=== PATIENT | male | born 1990 | race Hispanic/Latino ===

== ENCOUNTER 2023-05-20 10:27 | Emergency (ER) | payer OTHER ==
[~2023-05-20] VITALS: Ht 167.6 cm; Wt 80.2 kg
[2023-05-20 10:53] LABS: BASOPHILS 0.8 % (0-2); EOSINOPHILS 4.1 % (0-6); HEMATOCRIT 40.9 % (35.0-50.0); LYMPHOCYTES 32.7 % (24-44); MCH 30.3 (27-36); MCHC 34.3 g/dl (30-36); MCV 88.4 fl (81-99); NEUTROPHILS 50.4 % (39-80); PLATELET COUNT 300 K/uL (140-440); RBC 4.63 M/ul (4.3-5.7)
[2023-05-20 11:18] LABS: ALBUMIN 4.1 g/dL (3.4-5.0); ALBUMIN/GLOBULIN RATIO 1.24 (1.1-2.4); ANION GAP 12.4 (7-21); BILIRUBIN, TOTAL 0.4 ng/dL (0.2-1.0); BUN/CREATININE RATIO 13.68 (6.0-28.6); CALCIUM 8.4 mg/dL (8.5-10.1); CREATININE, SERUM 0.95 mg/dL (0.70-1.30); MAGNESIUM 2.1 mg/dL (1.8-2.4); POTASSIUM 3.4 mmol/L (3.5-5.1); PROTEIN, TOTAL 7.4 g/dL (6.4-8.2)
[2023-05-20] MEDS ORDERED: NAPROSYN500 MG PO (12:26)
[2023-05-20 13:11] VITALS: BP 124/90
--- NOTE | 2023-05-20 14:53 | EKG ---
[facility] [address] [facility] [place], [place] [address] Signed Normal sinus rhythm ST elevation, probably due to early repolarization Borderline ECG No previous ECGs available Confirmed by TARUN KEN MD ([id number]) on 05/20/2023 2:53:23 PM Electronically Signed By: TARUN KEN 05/20/23 1453 PATIENT NAME: PARAMJIT VAIL Electrocardiogram DATE OF : 89 PHYSICIAN: TARUN KEN REPORT #: [id number] REPORT IS CONFIDENTIAL AND NOT TO BE RELEASED WITHOUT AUTHORIZATION
== END 2023-05-20 13:10 | disposition home or self-care (01) ==
LOC: ED 10:27
PROVIDERS: Emergency Medicine
DX: R07.89 Other chest pain (principal)
CPT/HCPCS: 36415; 71045; 80053; 83735; 84484; 85025; 93005; 93010; J1885

== ENCOUNTER 2023-07-30 20:11 | Emergency (ER) | payer OTHER ==
[~2023-07-30] VITALS: Ht 167.6 cm; Wt 77.4 kg
[~2023-07-30 20:11] MED LIST: NAPROSYN500 MG PO
[2023-07-30] MEDS ORDERED: ONDANSETRON 4 MG TAB ODT SL ONE (22:00)
[2023-07-30] MEDS ORDERED: TRANEXAMIC ACID 1,000 MG/10 ML AMP TOP ONE (23:00)
[2023-07-30 23:50] LABS: BASOPHILS 0.4 % (0-2); EOSINOPHILS 0.4 % (0-6); HEMATOCRIT 43.2 % (35.0-50.0); HEMOGLOBIN 14.6 g/dL (12.0-18.0); LYMPHOCYTES 9.3 % (24-44); MCH 29.9 (27-36); MCHC 33.7 g/dl (30-36); MCV 88.5 fl (81-99); MONOCYTES 4.3 % (0-12); NEUTROPHILS 85.6 % (39-80); PLATELET COUNT 314 K/uL (140-440); RBC 4.88 M/ul (4.3-5.7); RDW 13.4 (10.5-15.0)
[2023-07-30 23:54] LABS: INR 0.99 (0.80-1.30); PROTIME 12.7 Sec (11.2-14.2)
[2023-07-30 23:56] LABS: PARTIAL THROMBOPLASTIN TIME 23.2 Sec (22.9-41.3)
[2023-07-31 00:57] VITALS: BP 137/78
== END 2023-07-31 00:58 | disposition home or self-care (01) ==
LOC: ED 20:11
PROVIDERS: Emergency Medicine
DX: K91.840 Postprocedural hemorrhage of a digestive system organ or structure following a digestive system procedure (principal)
CPT/HCPCS: 36415; 85025; 85610; 85730; 99283; A9270